=== PATIENT | male | born 1945 | race Caucasian/White ===

== ENCOUNTER 2017-05-28 12:15 | Inpatient (IN) ==
[2017-05-28] MEDS ORDERED: SODIUM CHLORIDE 0.9% 1,000 ML IV STA (12:42)
[2017-05-28] MEDS ORDERED: PANTOPRAZOLE 40 MG VIAL IV STA (12:42)
[2017-05-28] MEDS ORDERED: PANTOPRAZOLE INJ 200 MG in SODIUM CHLORIDE 0.9% 250 ML IV SCH (13:00)
[2017-05-28 13:02] LABS: Basophils # 0.1 10*3/uL (0.0-0.2); Basophils % 0.7 % (0.0-0.8); Eosinophils # 0.1 10*3/uL (0.0-0.87); Eosinophils % 1.2 % (0.00-10.9); Hematocrit 40.7 VOL% (42.0-52.0); Hemoglobin 14.9 GM/DL (14.0-18.0); Immature Granulocytes % 0.5 %; Immature Granulocytes Absolute 0.05 #; Lymphocytes # 1.3 10*3/uL (1.4-4.0); Lymphocytes % 12.5 % (21.2-54.2); Mean Corpuscular HGB Conc 36.6 GM/DL (32-36); Mean Corpuscular Hemoglobin 33 PG (27-34); Mean Corpuscular Volume 88.7 FL (87-102); Mean Platelet Volume 10.9 FL (9.6-12.0); Monocytes # 0.9 10*3/uL (0.11-0.8); Monocytes % 8.7 % (1.7-12.7); Neutrophils # 8.2 10*3/uL (1.4-7.4); Neutrophils % 76.4 % (38.7-73.9); Platelet Count 265 T/CUMM (130-400); Red Blood Count 4.59 MC/CUMM (3.8-5.5); Red Cell Distribution Width 12.5 % (9.3-17.3); White Blood Count 10.7 T/CUMM (4-12)
[2017-05-28] MEDS ORDERED: PANTOPRAZOLE 40 MG VIAL IV ONE (13:05)
[2017-05-28 13:31] LABS: Albumin 3.4 G/DL (3.4-5.0); Bilirubin,Total 0.8 MG/DL (0.2-1.0); Calcium 9.1 MG/DL (8.5-10.1); Osmolality,Calculated 272.1 MOS/KG (273-304); Potassium 4.2 MMOL/L (3.5-5.1); Total Protein 6.5 G/DL (6.4-8.3); Troponin I Only 0.019 NG/ML (0.00-0.045)
[2017-05-28] MEDS ORDERED: ONDANSETRON 4 MG/2 ML VIAL IV PRN (14:36)
[2017-05-28] MEDS ORDERED: ZALEPLON 5 MG CAPSULE PO PRN (14:36)
[2017-05-28] MEDS ORDERED: ACETAMINOPHEN 325 MG TABLET PO PRN (14:36)
[2017-05-28] MEDS: DEXTROSE 5% NACL 0.45% 1,000 ML IV SCH ×2 (15:57→21:33)
[2017-05-28 19:27] LABS: Hemoglobin 13.3 GM/DL (14.0-18.0)
[2017-05-28] MEDS: PRAVASTATIN 20 MG TABLET PO SCH (21:17)
[2017-05-28] MEDS: POTASSIUM CHLORIDE 10 MEQ TABLET PO SCH (21:17)
[2017-05-29 05:30] LABS: Basophils # 0.1 10*3/uL (0.0-0.2); Basophils % 1.1 % (0.0-0.8); Eosinophils # 0.2 10*3/uL (0.0-0.87); Eosinophils % 2.3 % (0.00-10.9); Hematocrit 39.1 VOL% (42.0-52.0); Hemoglobin 13.6 GM/DL (14.0-18.0); Immature Granulocytes % 0.4 %; Immature Granulocytes Absolute 0.04 #; Lymphocytes # 1.3 10*3/uL (1.4-4.0); Lymphocytes % 13.6 % (21.2-54.2); Mean Corpuscular HGB Conc 34.8 GM/DL (32-36); Mean Corpuscular Hemoglobin 31 PG (27-34); Mean Corpuscular Volume 90.3 FL (87-102); Mean Platelet Volume 11.1 FL (9.6-12.0); Monocytes # 0.8 10*3/uL (0.11-0.8); Monocytes % 8.6 % (1.7-12.7); Neutrophils # 6.8 10*3/uL (1.4-7.4); Platelet Count 245 T/CUMM (130-400); Red Blood Count 4.33 MC/CUMM (3.8-5.5); Red Cell Distribution Width 12.5 % (9.3-17.3); White Blood Count 9.2 T/CUMM (4-12)
[2017-05-29 06:01] LABS: Albumin 3.3 G/DL (3.4-5.0); Bilirubin,Total 0.9 MG/DL (0.2-1.0); Calcium 8.6 MG/DL (8.5-10.1); Magnesium 2.3 MG/DL (1.8-2.4); Osmolality,Calculated 278.5 MOS/KG (273-304); Potassium 4.5 MMOL/L (3.5-5.1); Total Protein 6.2 G/DL (6.4-8.3)
[2017-05-29] MEDS: SERTRALINE 50 MG TABLET PO SCH (08:45)
[2017-05-29] MEDS: MAGNESIUM CHLORIDE 64 MG TABLET PO SCH (08:45)
[2017-05-29] MEDS: amLODIPine 10 MG TABLET PO SCH (08:45)
[2017-05-29] MEDS: miSOPROStol 200 MCG TABLET PO SCH (08:45)
[2017-05-29] MEDS: CHOLECALCIFEROL 1,000 UNIT TABLET PO SCH (08:45)
[2017-05-29] MEDS: LOSARTAN 25 MG TABLET PO SCH (08:45)
[2017-05-29] MEDS ORDERED: TAMSULOSIN 0.4 MG CAPSULE PO SCH (09:00)
[2017-05-29] MEDS ORDERED: NON-FORMULARY MEDICATION (Lansoprazole [Prevacid] 30 MG) PO SCH (09:00)
[2017-05-29] MEDS: DEXTROSE 5% NACL 0.45% 1,000 ML IV SCH ×2 (09:52→17:42)
[2017-05-29] MEDS: POTASSIUM CHLORIDE 10 MEQ TABLET PO SCH (20:04)
[2017-05-29] MEDS: PRAVASTATIN 20 MG TABLET PO SCH (20:04)
[2017-05-29] MEDS: TAMSULOSIN 0.4 MG CAPSULE PO SCH (20:04)
[2017-05-30 05:28] LABS: Basophils # 0.1 10*3/uL (0.0-0.2); Basophils % 0.7 % (0.0-0.8); Eosinophils # 0.2 10*3/uL (0.0-0.87); Eosinophils % 1.9 % (0.00-10.9); Hematocrit 38.2 VOL% (42.0-52.0); Hemoglobin 13.5 GM/DL (14.0-18.0); Immature Granulocytes % 0.7 %; Immature Granulocytes Absolute 0.06 #; Lymphocytes # 1.3 10*3/uL (1.4-4.0); Lymphocytes % 14.3 % (21.2-54.2); Mean Corpuscular HGB Conc 35.3 GM/DL (32-36); Mean Corpuscular Hemoglobin 32 PG (27-34); Mean Corpuscular Volume 89.3 FL (87-102); Mean Platelet Volume 11.4 FL (9.6-12.0); Monocytes # 0.9 10*3/uL (0.11-0.8); Monocytes % 9.6 % (1.7-12.7); Neutrophils # 6.5 10*3/uL (1.4-7.4); Neutrophils % 72.8 % (38.7-73.9); Platelet Count 274 T/CUMM (130-400); Red Blood Count 4.28 MC/CUMM (3.8-5.5); Red Cell Distribution Width 12.6 % (9.3-17.3)
[2017-05-30] MEDS: LOSARTAN 25 MG TABLET PO SCH ×2 (10:00→17:46)
[2017-05-30] MEDS: miSOPROStol 200 MCG TABLET PO SCH ×2 (10:00→17:47)
[2017-05-30] MEDS: CHOLECALCIFEROL 1,000 UNIT TABLET PO SCH ×2 (10:01→17:46)
[2017-05-30] MEDS: SERTRALINE 50 MG TABLET PO SCH ×2 (10:01→17:47)
[2017-05-30] MEDS: MAGNESIUM CHLORIDE 64 MG TABLET PO SCH ×2 (10:01→17:46)
[2017-05-30] MEDS: TAMSULOSIN 0.4 MG CAPSULE PO SCH ×2 (10:01→21:26)
[2017-05-30] MEDS: amLODIPine 10 MG TABLET PO SCH ×2 (10:01→17:46)
[2017-05-30] MEDS ORDERED: LABETALOL 100 MG/20 ML VIAL IV ONE (14:02)
[2017-05-30] MEDS ORDERED: LIDOCAINE 2% 5 ML VIAL ONE (14:02)
[2017-05-30] MEDS ORDERED: PROPOFOL 200 MG/20 ML VIAL IV ONE (14:02)
[2017-05-30] MEDS: POTASSIUM CHLORIDE 10 MEQ TABLET PO SCH (21:22)
[2017-05-30] MEDS: acetaZOLAMIDE 250 MG TABLET PO SCH (21:22)
[2017-05-30] MEDS: PRAVASTATIN 20 MG TABLET PO SCH (21:23)
[2017-05-31] MEDS: MAGNESIUM CHLORIDE 64 MG TABLET PO SCH (09:13)
[2017-05-31] MEDS: LOSARTAN 25 MG TABLET PO SCH (09:13)
[2017-05-31] MEDS: amLODIPine 10 MG TABLET PO SCH (09:13)
[2017-05-31] MEDS: miSOPROStol 200 MCG TABLET PO SCH (09:13)
[2017-05-31] MEDS: SERTRALINE 50 MG TABLET PO SCH (09:13)
[2017-05-31] MEDS: TAMSULOSIN 0.4 MG CAPSULE PO SCH ×2 (09:13→21:43)
[2017-05-31] MEDS: CHOLECALCIFEROL 1,000 UNIT TABLET PO SCH (09:13)
[2017-05-31] MEDS ORDERED: DEXTROSE 50% 25 GM/50 ML VIAL IV PRN (14:40)
[2017-05-31] MEDS: FAT EMULSION 20% 250 ML IV SCH (16:40)
[2017-05-31] MEDS: TRACE ELEMENTS (5) 1 ML, MULTIVITAMIN INJ 10 ML in AMINO ACIDS/DEXT/LYTES 4.25-5% 2,000 ML IV SCH (16:40)
[2017-05-31] MEDS: INSULIN REGULAR 100 UNIT/ML SUBCUT SCH (18:18)
[2017-05-31] MEDS: POTASSIUM CHLORIDE 10 MEQ TABLET PO SCH (21:39)
[2017-05-31] MEDS: PRAVASTATIN 20 MG TABLET PO SCH (21:39)
[2017-05-31] MEDS: PANTOPRAZOLE 40 MG VIAL IV SCH (21:40)
[2017-06-01] MEDS: INSULIN REGULAR 100 UNIT/ML SUBCUT SCH ×4 (01:01→18:52)
[2017-06-01 05:39] LABS: Hematocrit 35.8 VOL% (42.0-52.0); Hemoglobin 12.6 GM/DL (14.0-18.0)
[2017-06-01 06:14] LABS: Calcium 8.7 MG/DL (8.5-10.1); Magnesium 2.4 MG/DL (1.8-2.4); Osmolality,Calculated 275.8 MOS/KG (273-304); Phosphorous 4.2 MG/DL (2.5-4.9); Potassium 4.1 MMOL/L (3.5-5.1); Prealbumin 24.8 MG/DL (20-40)
[2017-06-01] MEDS: miSOPROStol 200 MCG TABLET PO SCH (09:52)
[2017-06-01] MEDS: MAGNESIUM CHLORIDE 64 MG TABLET PO SCH (09:52)
[2017-06-01] MEDS: CHOLECALCIFEROL 1,000 UNIT TABLET PO SCH (09:52)
[2017-06-01] MEDS: TAMSULOSIN 0.4 MG CAPSULE PO SCH ×2 (09:52→21:13)
[2017-06-01] MEDS: PANTOPRAZOLE 40 MG VIAL IV SCH ×2 (09:52→21:13)
[2017-06-01] MEDS: amLODIPine 10 MG TABLET PO SCH (09:52)
[2017-06-01] MEDS: SERTRALINE 50 MG TABLET PO SCH (09:52)
[2017-06-01] MEDS: LOSARTAN 25 MG TABLET PO SCH (09:52)
[2017-06-01] MEDS: FAT EMULSION 20% 250 ML IV SCH (15:31)
[2017-06-01] MEDS: TRACE ELEMENTS (5) 1 ML, MULTIVITAMIN INJ 10 ML in AMINO ACIDS/DEXT/LYTES 4.25-5% 2,000 ML IV SCH (16:12)
[2017-06-01] MEDS: POTASSIUM CHLORIDE 10 MEQ TABLET PO SCH (21:12)
[2017-06-01] MEDS: PRAVASTATIN 20 MG TABLET PO SCH (21:12)
[2017-06-01] MEDS: acetaZOLAMIDE 250 MG TABLET PO SCH (21:13)
[2017-06-02] MEDS: INSULIN REGULAR 100 UNIT/ML SUBCUT SCH ×4 (00:05→18:02)
[2017-06-02] MEDS: amLODIPine 10 MG TABLET PO SCH (08:25)
[2017-06-02] MEDS: MAGNESIUM CHLORIDE 64 MG TABLET PO SCH (08:25)
[2017-06-02] MEDS: SERTRALINE 50 MG TABLET PO SCH (08:25)
[2017-06-02] MEDS: TAMSULOSIN 0.4 MG CAPSULE PO SCH ×2 (08:25→21:52)
[2017-06-02] MEDS: CHOLECALCIFEROL 1,000 UNIT TABLET PO SCH (08:25)
[2017-06-02] MEDS: miSOPROStol 200 MCG TABLET PO SCH (08:25)
[2017-06-02] MEDS: LOSARTAN 25 MG TABLET PO SCH (08:26)
[2017-06-02] MEDS: PANTOPRAZOLE 40 MG VIAL IV SCH ×2 (08:26→20:54)
[2017-06-02] MEDS ORDERED: BISACODYL 5 MG TABLET PO ONE ×2 (09:00→12:00)
[2017-06-02] MEDS ORDERED: POLYETHYLENE GLYCOL POWDER 255 GM BOTTLE PO ONE ×2 (09:02→13:00)
[2017-06-02] MEDS: FAT EMULSION 20% 250 ML IV SCH (14:04)
[2017-06-02] MEDS: TRACE ELEMENTS (5) 1 ML, MULTIVITAMIN INJ 10 ML in AMINO ACIDS/DEXT/LYTES 4.25-5% 2,000 ML IV SCH (16:33)
[2017-06-02] MEDS: PRAVASTATIN 20 MG TABLET PO SCH (20:54)
[2017-06-02] MEDS: POTASSIUM CHLORIDE 10 MEQ TABLET PO SCH (20:54)
[2017-06-02] MEDS ORDERED: MAGNESIUM CITRATE 300 ML BOTTLE PO ONE (21:00)
[2017-06-03] MEDS: INSULIN REGULAR 100 UNIT/ML SUBCUT SCH ×4 (04:07→17:37)
[2017-06-03] MEDS ORDERED: MAGNESIUM CITRATE 300 ML BOTTLE PO ONE (05:24)
[2017-06-03 06:54] LABS: Basophils # 0.1 10*3/uL (0.0-0.2); Basophils % 0.8 % (0.0-0.8); Eosinophils # 0.3 10*3/uL (0.0-0.87); Eosinophils % 2.4 % (0.00-10.9); Hematocrit 38.5 VOL% (42.0-52.0); Hemoglobin 13.8 GM/DL (14.0-18.0); Immature Granulocytes % 0.6 %; Immature Granulocytes Absolute 0.07 #; Lymphocytes # 1.2 10*3/uL (1.4-4.0); Lymphocytes % 10.7 % (21.2-54.2); Mean Corpuscular HGB Conc 35.8 GM/DL (32-36); Mean Corpuscular Hemoglobin 32 PG (27-34); Mean Corpuscular Volume 88.3 FL (87-102); Mean Platelet Volume 11.2 FL (9.6-12.0); Monocytes # 1.1 10*3/uL (0.11-0.8); Monocytes % 9.6 % (1.7-12.7); Neutrophils # 8.8 10*3/uL (1.4-7.4); Neutrophils % 75.9 % (38.7-73.9); Platelet Count 238 T/CUMM (130-400); Red Blood Count 4.36 MC/CUMM (3.8-5.5); Red Cell Distribution Width 12.2 % (9.3-17.3); White Blood Count 11.5 T/CUMM (4-12)
[2017-06-03 07:21] LABS: Calcium 8.7 MG/DL (8.5-10.1); Osmolality,Calculated 265.5 MOS/KG (273-304); Potassium 4.3 MMOL/L (3.5-5.1)
[2017-06-03] MEDS: PANTOPRAZOLE 40 MG VIAL IV SCH (08:59)
[2017-06-03] MEDS ORDERED: PROPOFOL 200 MG/20 ML VIAL IV ONE (10:49)
[2017-06-03] MEDS ORDERED: ETOMIDATE 20 MG/10 ML VIAL IV ONE (10:49)
[2017-06-03] MEDS ORDERED: LIDOCAINE 1% 5 ML VIAL ONE (10:49)
[2017-06-03] MEDS: CHOLECALCIFEROL 1,000 UNIT TABLET PO SCH (12:56)
[2017-06-03] MEDS: SERTRALINE 50 MG TABLET PO SCH (12:56)
[2017-06-03] MEDS: miSOPROStol 200 MCG TABLET PO SCH (12:56)
[2017-06-03] MEDS: amLODIPine 10 MG TABLET PO SCH (12:56)
[2017-06-03] MEDS: LOSARTAN 25 MG TABLET PO SCH (12:57)
[2017-06-03] MEDS: TAMSULOSIN 0.4 MG CAPSULE PO SCH (12:57)
[2017-06-03] MEDS: MAGNESIUM CHLORIDE 64 MG TABLET PO SCH (12:57)
[2017-06-03 16:57] VITALS: BP 170/95
== END 2017-06-03 18:09 | disposition home or self-care (01) | DRG 379 ==
LOC: N.ED 12:15 → N.EDINP 13:50 → SUATTDRO 13:50 → N.EDINP 15:08 → N.5E 15:16
PROVIDERS: ADMIT Family Medicine; ATTEND Internal Medicine Nephrology

== ENCOUNTER 2019-02-16 14:10 | Inpatient (IN) ==
[2019-02-16 16:49] LABS: Basophils # 0.1 10*3/uL (0.0-0.2); Basophils % 0.9 % (0.0-0.8); Eosinophils # 0.2 10*3/uL (0.0-0.87); Eosinophils % 2.5 % (0.00-10.9); Hemoglobin 11.8 GM/DL (14.0-18.0); Immature Granulocytes % 0.5 %; Immature Granulocytes Absolute 0.04 #; Lymphocytes # 1.4 10*3/uL (1.4-4.0); Lymphocytes % 18.4 % (21.2-54.2); Mean Corpuscular HGB Conc 33.7 GM/DL (32-36); Mean Corpuscular Volume 92.8 FL (87-102); Mean Platelet Volume 10.4 FL (9.6-12.0); Monocytes % 10.1 % (1.7-12.7); Neutrophils % 67.6 % (38.7-73.9); Platelet Count 207 T/CUMM (130-400); Red Blood Count 3.77 MC/CUMM (3.8-5.5); Red Cell Distribution Width 12.8 % (9.3-17.3); White Blood Count 7.6 T/CUMM (4-12)
[2019-02-16 17:05] LABS: Albumin 3.4 G/DL (3.4-5.0); Bilirubin,Total 0.8 MG/DL (0.2-1.0); Calcium 8.6 MG/DL (8.5-10.1); Osmolality,Calculated 286.3 MOS/KG (273-304); Total Protein 6.5 G/DL (6.4-8.3)
[2019-02-16 17:12] LABS: PT Patient Result 10.6 SECS; Partial Thromboplastin Time 27.1 SECS (0-40)
[2019-02-16] MEDS ORDERED: ACETAMINOPHEN 325 MG TABLET PO PRN (20:03)
[2019-02-16] MEDS ORDERED: ONDANSETRON 4 MG/2 ML VIAL IV PRN (20:03)
[2019-02-16] MEDS: SODIUM CHLORIDE 0.9% 1,000 ML IV SCH (20:35)
[2019-02-16 21:12] LABS: Hematocrit 32.3 VOL% (42.0-52.0); Hemoglobin 10.7 GM/DL (14.0-18.0)
[2019-02-16 21:21] LABS: PT Patient Result 10.7 SECS; Partial Thromboplastin Time 26.4 SECS (0-40)
[2019-02-16] MEDS: SIMVASTATIN 10 MG TABLET PO SCH (22:11)
[2019-02-16] MEDS: SERTRALINE 50 MG TABLET PO SCH (22:12)
[2019-02-16] MEDS: PANTOPRAZOLE 40 MG VIAL IV SCH (22:12)
[2019-02-17 02:10] LABS: Hematocrit 27.2 VOL% (42.0-52.0); Hemoglobin 9.2 GM/DL (14.0-18.0)
[2019-02-17 02:30] LABS: Albumin 2.8 G/DL (3.4-5.0); Bilirubin,Total 0.5 MG/DL (0.2-1.0); Calcium 7.8 MG/DL (8.5-10.1); Osmolality,Calculated 287.3 MOS/KG (273-304); Total Protein 5.4 G/DL (6.4-8.3)
[2019-02-17] MEDS: SODIUM CHLORIDE 0.9% 1,000 ML IV SCH ×3 (06:19→23:03)
[2019-02-17 08:01] LABS: Hematocrit 28.4 VOL% (42.0-52.0); Hemoglobin 9.2 GM/DL (14.0-18.0)
[2019-02-17] MEDS: OXYBUTYNIN XL 10 MG TABLET PO SCH (10:42)
[2019-02-17] MEDS: TAMSULOSIN 0.4 MG CAPSULE PO SCH (10:42)
[2019-02-17] MEDS: PANTOPRAZOLE 40 MG VIAL IV SCH ×2 (10:42→21:00)
[2019-02-17 14:11] LABS: Hematocrit 26.1 VOL% (42.0-52.0); Hemoglobin 8.6 GM/DL (14.0-18.0)
[2019-02-17] MEDS: SERTRALINE 50 MG TABLET PO SCH (21:00)
[2019-02-17] MEDS: SIMVASTATIN 10 MG TABLET PO SCH (21:00)
[2019-02-18] MEDS: SODIUM CHLORIDE 0.9% 1,000 ML IV SCH (07:09)
[2019-02-18] MEDS: TAMSULOSIN 0.4 MG CAPSULE PO SCH (09:26)
[2019-02-18] MEDS: OXYBUTYNIN XL 10 MG TABLET PO SCH (09:26)
[2019-02-18] MEDS: PANTOPRAZOLE 40 MG VIAL IV SCH ×2 (09:27→20:45)
[2019-02-18] MEDS: CLORAZEPATE 3.75 MG TABLET PO PRN (18:00)
[2019-02-18] MEDS: SIMVASTATIN 10 MG TABLET PO SCH (20:45)
[2019-02-18] MEDS: SERTRALINE 50 MG TABLET PO SCH (20:45)
[2019-02-19 10:17] LABS: Hematocrit 25.9 VOL% (42.0-52.0); Hemoglobin 8.7 GM/DL (14.0-18.0)
[2019-02-19] MEDS: CLORAZEPATE 3.75 MG TABLET PO PRN ×3 (10:21→22:01)
[2019-02-19] MEDS: PANTOPRAZOLE 40 MG VIAL IV SCH (10:21)
[2019-02-19] MEDS: TAMSULOSIN 0.4 MG CAPSULE PO SCH (10:21)
[2019-02-19] MEDS: OXYBUTYNIN XL 10 MG TABLET PO SCH (10:21)
[2019-02-19] MEDS: SIMVASTATIN 10 MG TABLET PO SCH (22:01)
[2019-02-19] MEDS: PANTOPRAZOLE 40 MG TABLET PO SCH (22:01)
[2019-02-19] MEDS: SERTRALINE 50 MG TABLET PO SCH (22:02)
[2019-02-20] MEDS ORDERED: LOSARTAN 25 MG TABLET PO SCH ×2 (09:42→21:00)
[2019-02-20] MEDS ORDERED: amLODIPine 10 MG TABLET PO SCH (09:42)
[2019-02-20] MEDS: OXYBUTYNIN XL 10 MG TABLET PO SCH (09:43)
[2019-02-20] MEDS: TAMSULOSIN 0.4 MG CAPSULE PO SCH (09:43)
[2019-02-20] MEDS: CLORAZEPATE 3.75 MG TABLET PO PRN (09:43)
[2019-02-20] MEDS: PANTOPRAZOLE 40 MG TABLET PO SCH (09:44)
[2019-02-20] MEDS ORDERED: hydrALAZINE 20 MG/1 ML VIAL IV ONE (14:53)
[2019-02-20] MEDS ORDERED: FUROSEMIDE 20 MG/2 ML VIAL IV ONE (14:55)
[2019-02-20 15:32] VITALS: BP 144/95
== END 2019-02-20 16:20 | disposition home or self-care (01) | DRG 378 ==
LOC: N.ED 14:10 → N.EDINP 18:35 → N.5E 19:10
PROVIDERS: ADMIT Internal Medicine; ATTEND Internal Medicine

== ENCOUNTER 2019-05-25 14:54 | Inpatient (IN) ==
[2019-05-25] MEDS ORDERED: PANTOPRAZOLE 40 MG VIAL IV STA (15:27)
[2019-05-25] MEDS ORDERED: SODIUM CHLORIDE 0.9% 1,000 ML IV STA (15:27)
[2019-05-25 15:45] LABS: Basophils # 0.1 10*3/uL (0.0-0.2); Basophils % 0.7 % (0.0-0.8); Eosinophils # 0.4 10*3/uL (0.0-0.87); Hematocrit 31.6 VOL% (42.0-52.0); Hemoglobin 10.3 GM/DL (14.0-18.0); Immature Granulocytes % 0.8 %; Lymphocytes # 1.7 10*3/uL (1.4-4.0); Lymphocytes % 13.8 % (21.2-54.2); Mean Corpuscular HGB Conc 32.6 GM/DL (32-36); Mean Corpuscular Volume 93.8 FL (87-102); Mean Platelet Volume 10.8 FL (9.6-12.0); Monocytes % 9.2 % (1.7-12.7); Neutrophils % 72.5 % (38.7-73.9); Platelet Count 176 T/CUMM (130-400); Red Blood Count 3.37 MC/CUMM (3.8-5.5); Red Cell Distribution Width 14.8 % (9.3-17.3); White Blood Count 12.3 T/CUMM (4-12)
[2019-05-25 15:58] LABS: PT Patient Result 11.1 SECS (9.6-12.2); Partial Thromboplastin Time 27.8 SECS (20.8-36.0)
[2019-05-25 16:01] LABS: Albumin 2.6 G/DL (3.4-5.0); Bilirubin,Total 0.4 MG/DL (0.2-1.0); Calcium 7.9 MG/DL (8.5-10.1); Total Protein 5.4 G/DL (6.4-8.3)
[2019-05-25] MEDS ORDERED: ONDANSETRON 4 MG/2 ML VIAL IV PRN (17:19)
[2019-05-25] MEDS ORDERED: ACETAMINOPHEN 325 MG TABLET PO PRN (17:19)
[2019-05-25] MEDS ORDERED: INFLUENZA VIRUS VACCINE 0.5 ML SYRINGE IM ONE (19:15)
[2019-05-25] MEDS: acetaZOLAMIDE 250 MG TABLET PO SCH (20:49)
[2019-05-25] MEDS: POTASSIUM CHLORIDE 10 MEQ TABLET PO SCH (20:49)
[2019-05-25] MEDS: FOLIC ACID 1 MG TABLET PO SCH (20:49)
[2019-05-25] MEDS: busPIRone 10 MG TABLET PO SCH (20:49)
[2019-05-25] MEDS: SERTRALINE 50 MG TABLET PO SCH (20:49)
[2019-05-25] MEDS: SODIUM CHLORIDE 0.45% 1,000 ML IV SCH (20:49)
[2019-05-25] MEDS: PANTOPRAZOLE 40 MG TABLET PO SCH (20:50)
[2019-05-26 06:05] LABS: Basophils # 0.1 10*3/uL (0.0-0.2); Basophils % 0.9 % (0.0-0.8); Eosinophils # 0.4 10*3/uL (0.0-0.87); Eosinophils % 4.8 % (0.00-10.9); Hematocrit 26.5 VOL% (42.0-52.0); Hemoglobin 8.4 GM/DL (14.0-18.0); Immature Granulocytes % 0.6 %; Immature Granulocytes Absolute 0.05 #; Lymphocytes # 1.5 10*3/uL (1.4-4.0); Lymphocytes % 17.2 % (21.2-54.2); Mean Corpuscular HGB Conc 31.7 GM/DL (32-36); Mean Corpuscular Volume 95.3 FL (87-102); Monocytes % 7.5 % (1.7-12.7); Platelet Count 168 T/CUMM (130-400); Red Blood Count 2.78 MC/CUMM (3.8-5.5); White Blood Count 8.8 T/CUMM (4-12)
[2019-05-26 06:36] LABS: % Iron Saturation 16.8 % (18-50); Ferritin 187.3 ng/ml (26-388)
[2019-05-26 06:37] LABS: Folate 22.5 NG/ML (5.4-24.0); Vitamin B12 467 PG/ML (211-911)
[2019-05-26 07:06] LABS: Sedimentation Rate-Westergren 7 MM/HR (0-20)
[2019-05-26] MEDS: TAMSULOSIN 0.4 MG CAPSULE PO SCH (11:31)
[2019-05-26] MEDS: PANTOPRAZOLE 40 MG TABLET PO SCH ×2 (11:31→20:59)
[2019-05-26] MEDS: METOPROLOL SUCCINATE XL 100 MG TABLET PO SCH (11:31)
[2019-05-26] MEDS: busPIRone 10 MG TABLET PO SCH ×2 (11:31→20:58)
[2019-05-26] MEDS: CALCIUM (CARBONATE)/VITAMIN D 600 MG-400 UNIT TABLET PO SCH (11:32)
[2019-05-26] MEDS: LACTULOSE 20 GM/30 ML UDCUP PO SCH (11:33)
[2019-05-26] MEDS: LOSARTAN 50 MG TABLET PO SCH (11:33)
[2019-05-26] MEDS: POLYETHYLENE GLYCOL POWDER 17 GM PACK PO SCH (11:33)
[2019-05-26 11:34] LABS: Hematocrit 23.1 VOL% (42.0-52.0)
[2019-05-26] MEDS ORDERED: SODIUM CHLORIDE 0.9% 1,000 ML IV PRN ×2 (11:58→12:28)
[2019-05-26 12:16] LABS: Hemoglobin 7.3 GM/DL (14.0-18.0)
[2019-05-26] MEDS: FINASTERIDE 5 MG TABLET PO SCH (14:01)
[2019-05-26 19:25] LABS: Hematocrit 23.1 VOL% (42.0-52.0); Hemoglobin 7.5 GM/DL (14.0-18.0)
[2019-05-26] MEDS: SERTRALINE 50 MG TABLET PO SCH (20:58)
[2019-05-26] MEDS: POTASSIUM CHLORIDE 10 MEQ TABLET PO SCH (20:59)
[2019-05-26] MEDS: FOLIC ACID 1 MG TABLET PO SCH (20:59)
[2019-05-26] MEDS: SODIUM CHLORIDE 0.45% 1,000 ML IV SCH (21:51)
[2019-05-27 03:59] LABS: Basophils # 0.1 10*3/uL (0.0-0.2); Basophils % 1.1 % (0.0-0.8); Eosinophils # 0.3 10*3/uL (0.0-0.87); Eosinophils % 4.6 % (0.00-10.9); Hematocrit 24.8 VOL% (42.0-52.0); Hemoglobin 8.3 GM/DL (14.0-18.0); Immature Granulocytes Absolute 0.07 #; Lymphocytes # 1.5 10*3/uL (1.4-4.0); Lymphocytes % 20.1 % (21.2-54.2); Mean Corpuscular HGB Conc 33.5 GM/DL (32-36); Mean Corpuscular Volume 91.5 FL (87-102); Mean Platelet Volume 11.1 FL (9.6-12.0); Monocytes % 8.4 % (1.7-12.7); Neutrophils % 64.8 % (38.7-73.9); Platelet Count 126 T/CUMM (130-400); Red Blood Count 2.71 MC/CUMM (3.8-5.5); Red Cell Distribution Width 14.6 % (9.3-17.3); White Blood Count 7.4 T/CUMM (4-12)
[2019-05-27 04:00] LABS: Hematocrit 25.7 VOL% (42.0-52.0); Hemoglobin 8.4 GM/DL (14.0-18.0)
[2019-05-27] MEDS: SODIUM CHLORIDE 0.45% 1,000 ML IV SCH ×2 (05:08→21:49)
[2019-05-27 09:12] LABS: Hematocrit 24.1 VOL% (42.0-52.0); Hemoglobin 7.8 GM/DL (14.0-18.0)
[2019-05-27] MEDS: METOPROLOL SUCCINATE XL 100 MG TABLET PO SCH (09:33)
[2019-05-27] MEDS: CALCIUM (CARBONATE)/VITAMIN D 600 MG-400 UNIT TABLET PO SCH (09:35)
[2019-05-27] MEDS: LOSARTAN 50 MG TABLET PO SCH (09:36)
[2019-05-27] MEDS: TAMSULOSIN 0.4 MG CAPSULE PO SCH (09:36)
[2019-05-27] MEDS: busPIRone 10 MG TABLET PO SCH ×2 (09:37→21:49)
[2019-05-27] MEDS: PANTOPRAZOLE 40 MG TABLET PO SCH ×2 (09:37→22:51)
[2019-05-27] MEDS: FINASTERIDE 5 MG TABLET PO SCH (09:37)
[2019-05-27 13:08] LABS: Hematocrit 22.5 VOL% (42.0-52.0); Hemoglobin 7.4 GM/DL (14.0-18.0)
[2019-05-27 15:58] LABS: Hematocrit 19.6 VOL% (42.0-52.0); Hemoglobin 6.5 GM/DL (14.0-18.0)
[2019-05-27 21:41] LABS: Hematocrit 21.9 VOL% (42.0-52.0); Hemoglobin 7.3 GM/DL (14.0-18.0)
[2019-05-27] MEDS: FOLIC ACID 1 MG TABLET PO SCH (21:49)
[2019-05-27] MEDS: POTASSIUM CHLORIDE 10 MEQ TABLET PO SCH (22:49)
[2019-05-27] MEDS: SERTRALINE 50 MG TABLET PO SCH (22:50)
[2019-05-28 05:50] LABS: Hematocrit 23.3 VOL% (42.0-52.0); Hemoglobin 7.7 GM/DL (14.0-18.0)
[2019-05-28 08:16] LABS: Hematocrit 24.5 VOL% (42.0-52.0); Hemoglobin 8.2 GM/DL (14.0-18.0)
[2019-05-28] MEDS: busPIRone 10 MG TABLET PO SCH ×2 (09:05→20:52)
[2019-05-28] MEDS: METOPROLOL SUCCINATE XL 50 MG TABLET PO SCH (09:05)
[2019-05-28] MEDS: LOSARTAN 50 MG TABLET PO SCH (09:06)
[2019-05-28] MEDS: CALCIUM (CARBONATE)/VITAMIN D 600 MG-400 UNIT TABLET PO SCH (09:06)
[2019-05-28] MEDS: TAMSULOSIN 0.4 MG CAPSULE PO SCH (09:06)
[2019-05-28] MEDS: PANTOPRAZOLE 40 MG TABLET PO SCH ×2 (09:06→20:40)
[2019-05-28] MEDS: FINASTERIDE 5 MG TABLET PO SCH (09:06)
[2019-05-28 09:29] LABS: Hemoglobin A1 (Alkaline) 97.7 % (96.5-98.5); Hemoglobin A2 (Alkaline) 2.3 % (1.5-3.5)
[2019-05-28 12:19] LABS: Hematocrit 24.5 VOL% (42.0-52.0); Hemoglobin 8.1 GM/DL (14.0-18.0)
[2019-05-28] MEDS ORDERED: SODIUM CHLORIDE 0.9% 1,000 ML IV PRN (12:51)
[2019-05-28 17:30] LABS: Hematocrit 24.1 VOL% (42.0-52.0); Hemoglobin 7.8 GM/DL (14.0-18.0)
[2019-05-28] MEDS: LOSARTAN 25 MG TABLET PO SCH (18:31)
[2019-05-28] MEDS: POTASSIUM CHLORIDE 10 MEQ TABLET PO SCH (20:40)
[2019-05-28] MEDS: FOLIC ACID 1 MG TABLET PO SCH (20:40)
[2019-05-28] MEDS: acetaZOLAMIDE 250 MG TABLET PO SCH (20:40)
[2019-05-28] MEDS: SERTRALINE 50 MG TABLET PO SCH (20:40)
[2019-05-29] MEDS: hydrALAZINE 20 MG/1 ML VIAL IV PRN ×3 (01:23→15:41)
[2019-05-29] MEDS: SODIUM CHLORIDE 0.45% 1,000 ML IV SCH ×2 (06:36→22:35)
[2019-05-29] MEDS: FINASTERIDE 5 MG TABLET PO SCH (09:34)
[2019-05-29] MEDS: CALCIUM (CARBONATE)/VITAMIN D 600 MG-400 UNIT TABLET PO SCH (09:34)
[2019-05-29] MEDS: busPIRone 10 MG TABLET PO SCH ×2 (09:34→20:50)
[2019-05-29] MEDS: METOPROLOL SUCCINATE XL 50 MG TABLET PO SCH (09:35)
[2019-05-29] MEDS: LOSARTAN 25 MG TABLET PO SCH (09:35)
[2019-05-29] MEDS: PANTOPRAZOLE 40 MG TABLET PO SCH ×2 (09:35→20:50)
[2019-05-29] MEDS: TAMSULOSIN 0.4 MG CAPSULE PO SCH (09:35)
[2019-05-29 11:39] LABS: Hematocrit 31.4 VOL% (42.0-52.0); Hemoglobin 10.5 GM/DL (14.0-18.0)
[2019-05-29] MEDS: FOLIC ACID 1 MG TABLET PO SCH (20:50)
[2019-05-29] MEDS: POTASSIUM CHLORIDE 10 MEQ TABLET PO SCH (20:50)
[2019-05-29] MEDS: SERTRALINE 50 MG TABLET PO SCH (20:50)
[2019-05-30 00:13] LABS: Albumin 2.5 G/DL (3.4-5.0); Bilirubin,Total 0.4 MG/DL (0.2-1.0); Osmolality,Calculated 281.1 MOS/KG (273-304); Total Protein 4.7 G/DL (6.4-8.3)
[2019-05-30 05:51] LABS: Basophils # 0.1 10*3/uL (0.0-0.2); Basophils % 0.8 % (0.0-0.8); Eosinophils # 0.6 10*3/uL (0.0-0.87); Eosinophils % 6.2 % (0.00-10.9); Hematocrit 31.6 VOL% (42.0-52.0); Hemoglobin 10.1 GM/DL (14.0-18.0); Immature Granulocytes Absolute 0.09 #; Lymphocytes # 1.5 10*3/uL (1.4-4.0); Lymphocytes % 16.5 % (21.2-54.2); Mean Corpuscular Volume 92.7 FL (87-102); Mean Platelet Volume 10.8 FL (9.6-12.0); Monocytes % 10.3 % (1.7-12.7); Neutrophils % 65.2 % (38.7-73.9); Platelet Count 164 T/CUMM (130-400); Red Blood Count 3.41 MC/CUMM (3.8-5.5); Red Cell Distribution Width 15.6 % (9.3-17.3); White Blood Count 8.9 T/CUMM (4-12)
[2019-05-30] MEDS: FINASTERIDE 5 MG TABLET PO SCH (08:20)
[2019-05-30] MEDS: busPIRone 10 MG TABLET PO SCH ×2 (08:20→20:58)
[2019-05-30] MEDS: METOPROLOL SUCCINATE XL 50 MG TABLET PO SCH (08:20)
[2019-05-30] MEDS: PANTOPRAZOLE 40 MG TABLET PO SCH ×2 (08:21→20:58)
[2019-05-30] MEDS: CALCIUM (CARBONATE)/VITAMIN D 600 MG-400 UNIT TABLET PO SCH (08:21)
[2019-05-30] MEDS: LOSARTAN 25 MG TABLET PO SCH (08:21)
[2019-05-30] MEDS: TAMSULOSIN 0.4 MG CAPSULE PO SCH (08:21)
[2019-05-30] MEDS: SODIUM CHLORIDE 0.45% 1,000 ML IV SCH ×2 (08:26→13:31)
[2019-05-30] MEDS: POLYETHYLENE GLYCOL POWDER 17 GM PACK PO SCH (08:55)
[2019-05-30] MEDS: LACTULOSE 20 GM/30 ML UDCUP PO SCH (08:55)
[2019-05-30] MEDS: amLODIPine 5 MG TABLET PO SCH (12:16)
[2019-05-30 13:23] LABS: Troponin I 0.019 NG/ML (0.00-0.045)
[2019-05-30] MEDS: FERROUS SULFATE 325 MG TABLET PO SCH ×2 (14:25→20:58)
[2019-05-30] MEDS: FOLIC ACID 1 MG TABLET PO SCH (20:58)
[2019-05-30] MEDS: acetaZOLAMIDE 250 MG TABLET PO SCH (20:58)
[2019-05-30] MEDS: SERTRALINE 50 MG TABLET PO SCH (20:58)
[2019-05-30] MEDS: POTASSIUM CHLORIDE 10 MEQ TABLET PO SCH (21:02)
[2019-05-31 04:54] LABS: Basophils # 0.1 10*3/uL (0.0-0.2); Basophils % 0.9 % (0.0-0.8); Eosinophils # 0.7 10*3/uL (0.0-0.87); Eosinophils % 7.3 % (0.00-10.9); Hematocrit 29.8 VOL% (42.0-52.0); Hemoglobin 9.8 GM/DL (14.0-18.0); Lymphocytes # 1.5 10*3/uL (1.4-4.0); Lymphocytes % 15.8 % (21.2-54.2); Mean Corpuscular HGB Conc 32.9 GM/DL (32-36); Mean Corpuscular Volume 90.9 FL (87-102); Mean Platelet Volume 10.1 FL (9.6-12.0); Monocytes % 10.2 % (1.7-12.7); Neutrophils % 64.8 % (38.7-73.9); Platelet Count 183 T/CUMM (130-400); Red Blood Count 3.28 MC/CUMM (3.8-5.5); Red Cell Distribution Width 15.3 % (9.3-17.3); White Blood Count 9.7 T/CUMM (4-12)
[2019-05-31] MEDS: FINASTERIDE 5 MG TABLET PO SCH (09:01)
[2019-05-31] MEDS: PANTOPRAZOLE 40 MG TABLET PO SCH (09:01)
[2019-05-31] MEDS: amLODIPine 5 MG TABLET PO SCH (09:01)
[2019-05-31] MEDS: busPIRone 10 MG TABLET PO SCH (09:02)
[2019-05-31] MEDS: LACTULOSE 20 GM/30 ML UDCUP PO SCH (09:02)
[2019-05-31] MEDS: LOSARTAN 25 MG TABLET PO SCH (09:02)
[2019-05-31] MEDS: CALCIUM (CARBONATE)/VITAMIN D 600 MG-400 UNIT TABLET PO SCH (09:02)
[2019-05-31] MEDS: TAMSULOSIN 0.4 MG CAPSULE PO SCH (09:02)
[2019-05-31] MEDS: POLYETHYLENE GLYCOL POWDER 17 GM PACK PO SCH (09:03)
[2019-05-31] MEDS: FERROUS SULFATE 325 MG TABLET PO SCH (09:03)
[2019-05-31 11:37] VITALS: BP 163/84
[2019-05-31] MEDS: SODIUM CHLORIDE 0.45% 1,000 ML IV SCH (13:33)
== END 2019-05-31 14:20 | DRG 378 ==
LOC: EDBD → EDUNIT# → N.EDINP 14:54 → N.ED 14:54 → SUATTDRO 16:45 → N.EDINP 18:41 → N.4E 18:55 → SUATTDRO 05-28 13:55
PROVIDERS: ADMIT Internal Medicine; ATTEND Emergency Medicine